=== PATIENT | male | born 1995 | race Caucasian/White ===

== ENCOUNTER 2017-06-22 01:05 | Emergency (ER) | payer OTHER ==
[~2017-06-22] VITALS: Ht 167.6 cm; Wt 70.5 kg
[2017-06-22 01:30] VITALS: Ht 167.6 cm; Wt 70.5 kg
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
[2017-06-22] MEDS ORDERED: IBUPROFEN 600 MG TAB PO ONE (02:30)
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
[2017-06-22] MEDS ORDERED: IBUP-1542 PO (03:44)
== END 2017-06-22 03:51 | disposition home or self-care (01) ==
LOC: FTE 01:05
DX: S60.221A Contusion of right hand, initial encounter (principal); V49.40XA Driver injured in collision with unspecified motor vehicles in traffic accident, initial encounter
CPT/HCPCS: 73130; Z7502; Z7610